=== PATIENT | female | born 1970 | race African-American/Black ===

== ENCOUNTER 2019-08-07 11:11 | Inpatient (IN) ==
[2019-08-07 12:07] LABS: Basophils # 0.1 10*3/uL (0.0-0.2); Eosinophils # 0.3 10*3/uL (0.0-0.87); Eosinophils % 3.6 % (0.00-10.9); Hematocrit 33.7 VOL% (35.7-47.0); Hemoglobin 10.3 GM/DL (12.0-16.0); Immature Granulocytes % 0.1 %; Immature Granulocytes Absolute 0.01 #; Lymphocytes # 2.7 10*3/uL (1.4-4.0); Lymphocytes % 34.1 % (21.3-54.2); Mean Corpuscular HGB Conc 30.6 GM/DL (32-36); Mean Corpuscular Volume 80.8 FL (87-102); Mean Platelet Volume 12.4 FL (9.6-12.0); Neutrophils % 55.2 % (38.7-73.9); Platelet Count 261 T/CUMM (130-400); Red Blood Count 4.17 MC/CUMM (3.8-5.5); Red Cell Distribution Width 15.9 % (9.3-17.3); White Blood Count 7.9 T/CUMM (4-12)
[2019-08-07 12:12] LABS: INR 0.9; PT Patient Result 10.3 SECS (9.6-12.2); Partial Thromboplastin Time 21.7 SECS (20.8-36.0)
[2019-08-07 12:19] LABS: Alanine Aminotransferase 21 U/L (13-56); Albumin 3.3 G/DL (3.4-5.0); Alkaline Phosphatase 79 U/L (45-117); Aspartate Amino Transferase 17 U/L (0-37); Bilirubin,Total < 0.39 MG/DL (0.2-1.0); Blood Urea Nitrogen 11 MG/DL (7-18); Calcium 8.8 MG/DL (8.5-10.1); Estimated Glom Filtration Rate 79 ML/MIN; Glucose 146 MG/DL (74-106); Osmolality,Calculated 282.3 MOS/KG (273-304); Total Protein 7.1 G/DL (6.4-8.3)
[2019-08-07 13:27] LABS: Apearance,Urine CLEAR (Clear); Bilirubin,Urine Negative (Negative); Blood, Urine Negative (Negative); Glucose,Urine (UA) Negative (Negative); Ketones,Urine Negative (Negative); Mucus,Urine Occasional /LPF (Occasional); Nitrite,Urine Negative (Negative); Protein,Urine Negative; Squamous Epithelial Cell,Urine Occasional /HPF (0-10); Urine Color Straw (Yellow); Urine Specific Gravity 1.008 (1.001-1.035); Urine Urobilinogen < 2.0 EU/DL (0.2-1.0)
[2019-08-07] MEDS ORDERED: MAGNESIUM HYDROXIDE SUSP 30 ML UDCUP PO PRN (14:10)
[2019-08-07] MEDS ORDERED: ONDANSETRON 4 MG/2 ML VIAL IV PRN (14:10)
[2019-08-07] MEDS ORDERED: ACETAMINOPHEN 325 MG TABLET PO PRN (14:10)
[2019-08-07] MEDS ORDERED: BISACODYL 10 MG SUPP RECTAL PRN (14:10)
[2019-08-07 15:09] LABS: Basophils % 0.4 % (0.0-0.8); Eosinophils # 0.1 10*3/uL (0.0-0.87); Eosinophils % 0.6 % (0.00-10.9); Hematocrit 30.9 VOL% (35.7-47.0); Hemoglobin 9.7 GM/DL (12.0-16.0); Immature Granulocytes % 0.5 %; Immature Granulocytes Absolute 0.05 #; Lymphocytes % 9.3 % (21.3-54.2); Mean Corpuscular HGB Conc 31.4 GM/DL (32-36); Mean Corpuscular Volume 80.7 FL (87-102); Mean Platelet Volume 12.9 FL (9.6-12.0); Monocytes % 3.8 % (1.7-12.7); Neutrophils % 85.4 % (38.7-73.9); Platelet Count 236 T/CUMM (130-400); Red Blood Count 3.83 MC/CUMM (3.8-5.5); Red Cell Distribution Width 15.9 % (9.3-17.3); White Blood Count 10.7 T/CUMM (4-12)
[2019-08-07] MEDS ORDERED: INFLUENZA VIRUS VACCINE 0.5 ML SYRINGE IM ONE (16:19)
[2019-08-07] MEDS ORDERED: medroxyPROGESTERone 5 MG TABLET PO SCH (16:28)
[2019-08-07] MEDS: LACTATED RINGERS 1,000 ML IV SCH ×2 (16:41→23:50)
[2019-08-07] MEDS: IBUPROFEN 800 MG TABLET PO PRN (21:35)
[2019-08-07] MEDS: DOCUSATE SODIUM 100 MG CAPSULE PO SCH (21:35)
[2019-08-08 05:19] LABS: Hematocrit 23.1 VOL% (35.7-47.0)
[2019-08-08 05:47] LABS: Hemoglobin 7.2 GM/DL (12.0-16.0)
[2019-08-08] MEDS: IBUPROFEN 800 MG TABLET PO PRN (07:44)
[2019-08-08] MEDS: LACTATED RINGERS 1,000 ML IV SCH (07:50)
[2019-08-08] MEDS ORDERED: SODIUM CHLORIDE 0.9% 1,000 ML IV PRN (08:54)
[2019-08-08] MEDS ORDERED: medroxyPROGESTERone 5 MG TABLET PO SCH (09:00)
[2019-08-08] MEDS ORDERED: TRANEXAMIC ACID 1,000 MG/10 ML VIAL PO SCH (09:00)
[2019-08-08] MEDS: DOCUSATE SODIUM 100 MG CAPSULE PO SCH ×2 (10:15→21:33)
[2019-08-08] MEDS: TRANEXAMIC ACID 1,000 MG/10 ML VIAL PO SCH ×3 (11:45→21:32)
[2019-08-08] MEDS: medroxyPROGESTERone 5 MG TABLET PO SCH (12:39)
[2019-08-08 17:57] LABS: Hematocrit 27.7 VOL% (35.7-47.0); Hemoglobin 8.8 GM/DL (12.0-16.0)
[2019-08-09] MEDS: IBUPROFEN 800 MG TABLET PO PRN (03:21)
[2019-08-09 07:20] LABS: Basophils # 0.1 10*3/uL (0.0-0.2); Basophils % 1.2 % (0.0-0.8); Eosinophils # 0.3 10*3/uL (0.0-0.87); Eosinophils % 4.9 % (0.00-10.9); Hematocrit 27.2 VOL% (35.7-47.0); Hemoglobin 8.7 GM/DL (12.0-16.0); Immature Granulocytes % 0.4 %; Immature Granulocytes Absolute 0.02 #; Lymphocytes # 1.5 10*3/uL (1.4-4.0); Lymphocytes % 26.6 % (21.3-54.2); Mean Corpuscular Volume 76.6 FL (87-102); Mean Platelet Volume 11.6 FL (9.6-12.0); Monocytes % 7.4 % (1.7-12.7); Neutrophils % 59.5 % (38.7-73.9); Platelet Count 154 T/CUMM (130-400); Red Blood Count 3.55 MC/CUMM (3.8-5.5); Red Cell Distribution Width 19.9 % (9.3-17.3); White Blood Count 5.7 T/CUMM (4-12)
[2019-08-09] MEDS: medroxyPROGESTERone 5 MG TABLET PO SCH (09:24)
[2019-08-09] MEDS: DOCUSATE SODIUM 100 MG CAPSULE PO SCH (09:24)
[2019-08-09] MEDS: TRANEXAMIC ACID 1,000 MG/10 ML VIAL PO SCH ×2 (09:25→14:56)
[2019-08-09 11:22] VITALS: BP 97/51
[2019-08-10] MEDS ORDERED: TRANEXAMIC ACID TAB 650 MG TABLET PO SCH (09:00)
== END 2019-08-09 17:00 | disposition home or self-care (01) | DRG 532 ==
LOC: N.EDINP 11:11 → N.ED 11:11 → N.OB 15:15
PROVIDERS: ADMIT Obstetrics & Gynecology; ATTEND Obstetrics & Gynecology